=== PATIENT | male | born 1960 | race Caucasian/White ===

== ENCOUNTER 2017-04-13 10:48 | Emergency (ER) | payer OTHER ==
[~2017-04-13] VITALS: Ht 170.2 cm; Wt 86.0 kg
[~2017-04-13 10:48] MED LIST: OXYC5TAB PO
[2017-04-13 10:51] VITALS: TEMP 36.8; Ht 170.2 cm; Wt 86.0 kg
[2017-04-13] MEDS ORDERED: GI COCKTAIL PO STA (11:09)
[2017-04-13] MEDS ORDERED: ONDANSETRON INJ 2 MG/ML 2 ML VIAL IV STA (11:09)
[2017-04-13] MEDS ORDERED: FAMOTIDINE 20MG/5ML IV PUSH IV STA (11:09)
[2017-04-13] MEDS ORDERED: SODIUM CHLORIDE 0.9% 1000ML 1,000 ML IV STA (11:16)
--- NOTE | 2017-04-13 11:21 | EMERGENCY ROOM VISIT NOTE ---
History Report prepared by Allison: Dawn Yeager Under the Supervision of: Dr. Tushar Estes M.D. First contact with patient: 11:00 Chief Complaint: CHEST PAIN Stated Complaint: CHEST PAIN/TIGHTNESS, HIGH BP, TROUBLE SWALLOWING History of Present Illness The patient is a 56 year old male who presents to the Emergency Room with complaints of worsening chest pain that began over 2 weeks ago. He describes his discomfort as a sharp and burning chest pain that radiates downward. The patient states that he saw his PCP today, who recommended he come to the Emergency Department for further evaluation of his chest pain and hypertension. He notes that he has been having trouble swallowing, noting it feels like it gets stuck in the back of his throat. The patient states he has been experiencing back pain for one week, a cough for the past 2 weeks, feet numbness for several months, vomiting, head aches, and loss of appetite. The patient denies any diarrhea. The patient notes that he took Mucinex around 0600. He denies a history of blood clots, acid reflux, or smoking. Source of History: patient Onset: 2 weeks ago Position: chest Quality: other (chest pain) Timing: worsening Associated Symptoms: + headache, + cough, + vomiting, + back pain Review of Systems See HPI for pertinent positives and negatives. A total of ten systems were reviewed and were otherwise negative. Past Medical & Surgical Medical Problems: (1) Left leg injury Family History FH: HTN (hypertension) FH: cancer FH: diabetes mellitus FH: heart disease Social History Smoking Status: Never Smoker Alcohol Use: none Drug Use: none Marital Status: Housing Status: lives with family Occupation Status: employed Current/Historical Medications Scheduled Famotidine (Pepcid), 20 MG PO BID Prednisone Tab (Prednisone), 10 MG PO DIRECTED Allergies Coded Allergies: No Known Allergies (Unverified , 01/13/16) Physical Exam Vital Signs Date Time Temp Pulse Resp B/P (MAP) Pulse Ox O2 Delivery O2 Flow Rate FiO2 04/13/17 13:54 80 18 120/81 98 Room Air 04/13/17 13:21 86 04/13/17 11:43 94 Room Air 04/13/17 11:36 85 20 140/94 97 Room Air 04/13/17 11:11 90 04/13/17 10:51 36.8 93 20 151/98 96 Room Air Physical Exam GENERAL: Awake, alert, uncomfortable appearing, in no distress HENT: Dry mucous membranes. Normocephalic, atraumatic. Oropharynx unremarkable. EYES: Normal conjunctiva. Sclera non-icteric. NECK: Supple. No nuchal rigidity. FROM. No JVD. RESPIRATORY: Clear to auscultation. CARDIAC: Regular rate, normal rhythm. Extremities warm and well perfused. Pulses equal. ABDOMEN: Mild epigastric tenderness, no peritoneal signs such as distention, rebound, or guarding. No masses. RECTAL: Deferred. MUSCULOSKELETAL: Chest examination reveals no tenderness. The back is symmetrical on inspection without obvious abnormality. There is no CVA tenderness to palpation. No joint edema. LOWER EXTREMITIES: Calves are equal size bilaterally and non-tender. No edema. No discoloration. NEURO: Normal sensorium. No sensory or motor deficits noted. SKIN: No rash or jaundice noted. Medical Decision & Procedures ER Provider Diagnostic Interpretation: Radiology results as stated below per my review and radiologist interpretation: CHEST ONE VIEW PORTABLE HISTORY: 56 years-old Male CHEST PAIN acute atypical chest pain and chest tightness. Elevated blood pressure COMPARISON: Chest radiograph 04/15/2014 TECHNIQUE: Portable AP view of the chest FINDINGS: Cardiac silhouette is again mildly enlarged. No pneumothorax, pleural effusion, focal airspace consolidation or overt pulmonary edema. Bones of the chest appear grossly intact. IMPRESSION: Mild cardiomegaly without acute process. The above report was generated using voice recognition software. It may contain grammatical, syntax or spelling errors. Electronically signed by: Saul Thorne M.D. 04/13/2017 11:35 AM Dictated Date/Time: 04/13/2017 11:34 AM Laboratory Results 04/13/17 11:10 Red Blood Count 5.32, Mean Corpuscular Volume 89.7, Mean Corpuscular Hemoglobin 31.6, Mean Corpuscular Hemoglobin Concent 35.2, Mean Platelet Volume 9.3, Neutrophils (%) (Auto) 90.2, Lymphocytes (%) (Auto) 5.0, Monocytes (%) (Auto) 4.5, Eosinophils (%) (Auto) 0.0, Basophils (%) (Auto) 0.1, Neutrophils # (Auto) 17.51, Lymphocytes # (Auto) 0.98, Monocytes # (Auto) 0.87, Eosinophils # (Auto) 0.00, Basophils # (Auto) 0.01 04/13/17 11:10 Test 04/13/17 11:10 White Blood Count 19.41 K/uL (4.8-10.8) Red Blood Count 5.32 M/uL (4.7-6.1) Hemoglobin 16.8 g/dL (14.0-18.0) Hematocrit 47.7 % (42-52) Mean Corpuscular Volume 89.7 fL (80-100) Mean Corpuscular Hemoglobin 31.6 pg (25-34) Mean Corpuscular Hemoglobin Concent 35.2 g/dl (32-36) Platelet Count 241 K/uL (130-400) Mean Platelet Volume 9.3 fL (7.4-10.4) Neutrophils (%) (Auto) 90.2 % Lymphocytes (%) (Auto) 5.0 % Monocytes (%) (Auto) 4.5 % Eosinophils (%) (Auto) 0.0 % Basophils (%) (Auto) 0.1 % Neutrophils # (Auto) 17.51 K/uL (1.4-6.5) Lymphocytes # (Auto) 0.98 K/uL (1.2-3.4) Monocytes # (Auto) 0.87 K/uL (0.11-0.59) Eosinophils # (Auto) 0.00 K/uL (0-0.5) Basophils # (Auto) 0.01 K/uL (0-0.2) RDW Standard Deviation 41.2 fL (36.4-46.3) RDW Coefficient of Variation 12.7 % (11.5-14.5) Immature Granulocyte % (Auto) 0.2 % Immature Granulocyte # (Auto) 0.04 K/uL (0.00-0.02) Anion Gap 6.0 mmol/L (3-11) Est Creatinine Clear Calc Drug Dose 97.2 ml/min Estimated GFR () 110.3 Estimated GFR (Non- 95.2 BUN/Creatinine Ratio 12.5 (10-20) Calcium Level 8.6 mg/dl (8.5-10.1) Total Bilirubin 0.3 mg/dl (0.2-1) Direct Bilirubin < 0.1 mg/dl (0-0.2) Aspartate Amino Transf (AST/SGOT) 16 U/L (15-37) Alanine Aminotransferase (ALT/SGPT) 44 U/L (12-78) Alkaline Phosphatase 76 U/L (45-117) Troponin I < 0.015 ng/ml (0-0.045) Total Protein 7.9 gm/dl (6.4-8.2) Albumin 3.8 gm/dl (3.4-5.0) Lipase 129 U/L (73-393) Laboratory results reviewed by me Medications Administered Medications (Trade) Dose Ordered Sig/Johnathan Route Start Time Stop Time Status Last Admin Dose Admin Ondansetron HCl (Zofran Inj) 4 mg NOW STAT IV 04/13/17 11:09 04/13/17 11:17 DC 04/13/17 11:29 4 MG Famotidine (Pepcid 20mg Iv Push) 20 mg NOW STAT IV 04/13/17 11:09 04/13/17 11:17 DC 04/13/17 11:30 20 MG Sodium Chloride 1,000 ml @ 999 mls/hr Q1H1M STAT IV 04/13/17 11:16 04/13/17 12:16 DC 04/13/17 11:30 999 MLS/HR Al Hydroxide/Mg Hydroxide (Maalox Susp) 30 ml STK-MED ONCE .ROUTE 04/13/17 11:26 04/13/17 11:27 DC 04/13/17 11:30 30 ML Lidocaine HCl (Viscous Lidocaine 2% Soln) 20 ml STK-MED ONCE .ROUTE 04/13/17 11:27 04/13/17 11:28 DC 04/13/17 11:30 20 ML Albuterol (Ventolin Hfa Inhaler) 2 puffs NOW STAT INH 04/13/17 14:25 04/13/17 14:28 DC 04/13/17 14:34 2 PUFFS ECG Indication: chest pain Rate (beats per minute): 81 Rhythm: normal sinus Findings: no acute ischemic change, other (normal axis) ED Course 1107: The patient was evaluated in room B2. A complete history and physical exam was performed. 1341: I reevaluated the patient, who was resting comfortably. I discussed the test findings with him, letting him know that all his test results came back negative. We discussed the treatment plan and he verbalized complete understanding and agreement. The patient will follow up with GI. He was discharged home. Medical Decision I reviewed the patient's past medical history, medications, and the nursing notes as described above. The patient's presentation and history were concerning for gastritis, peptic ulcer, esophagitis, duodenitis, malignancy, ACS, dissection, aneurysm, pneumonia , bronchitis. Patient is a 56-year-old gentleman presents emergency department with numerous complaints including chest pain upper abdominal pain, difficulty swallowing and burning in his chest when he eats, feeling that food gets stuck when he eats, and bilateral lower extremity tingling for the past several months per history of present illness. While the patient is in no acute distress, afebrile stable vital signs. On exam he has mild tenderness in the epigastrium no peritoneal signs. EKG unremarkable. Labs notable for a leukocytosis to 19. CXR unremarkable. Given the patient's significant discomfort in the setting of long -standing history of chewing tobacco CTA was performed, and was negative for dissection, pneumonia, or acute abnormalities otherwise. However, it was noted that he has a sliding hiatal hernia which would likely predispose the patient to significant reflux and subsequent esophagitis. He did feel improved after IV Pepcid and GI cocktail. Otherwise a barium swallow study was performed and showed no impairment in the passage of the barium tablet. Given the patient is otherwise well-appearing at this time with no evidence of infection on this extensive workup while the patient follow-up with his primary care doctor to repeat his CBC. Additionally will provide GI referral for likely endoscopy given the patient's significant symptoms. We'll also give patient MDI for his persistent cough. No significant wheezing therefore no indication for steroids at this time. Additionally will begin Pepcid twice a day. Findings and plan for follow-up reviewed with patient. Patient agreeable and d/c'd per discharge instructions. Medication Reconcilliation Current Medication List: was personally reviewed by me Impression Primary Impression: Esophagitis Additional Impressions: Gastritis Sliding hiatal hernia Cough in adult Leukocytosis Scribe Attestation The scribe's documentation has been prepared under my direction and personally reviewed by me in its entirety. I confirm that the note above accurately reflects all work, treatment, procedures, and medical decision making performed by me. Departure Information Dispostion Home / Self-Care Prescriptions Famotidine (PEPCID) 20 Mg Tab 20 MG PO BID for 14 Days, #28 TAB Prov: Tushar Estes M.D. 04/13/17 Referrals Gagandeep Cast D.O. (PCP) Gagandeep Bradley MD Forms Call Back Authorization, HOME CARE DOCUMENTATION FORM, IMPORTANT VISIT INFORMATION Patient Instructions ED Gastritis, Esophagitis, My [facility] Additional Instructions Please follow up with your primary care physician in the next 1-3 days as well as with gastroenterology within a week for re-evaluation and to repeat your blood test, which today had an elevated white blood cell count, which was 19.4. You likely have esophagitis/gastritis in the setting of a sliding hiatal hernia. Otherwise, your exam, EKG, chest xray, barium swallow study, CTA of chest and abdomen, and lab results did not show signs of an emergent condition at this time. Pepcid as directed for acid reduction. Albuterol inhaler 2 puffs every 4 hours as needed for cough. Ensure hydration. Return to the emergency department for worsening symptoms as described in the accompanying instructions. Problem Qualifiers
[2017-04-13 11:25] LABS: BASO % 0.1 %; BASO ABS # 0.01 K/uL (0-0.2); HEMATOCRIT 47.7 % (42-52); HEMOGLOBIN 16.8 g/dL (14.0-18.0); IG# 0.04 K/uL (0.00-0.02); LYMPH ABS # 0.98 K/uL (1.2-3.4); MEAN CELL VOLUME 89.7 fL (80-100); MEAN CORPUSCULAR HEMOGLOBIN 31.6 pg (25-34); MEAN CORPUSCULAR HGB CONC 35.2 g/dl (32-36); MEAN PLATELET VOLUME 9.3 fL (7.4-10.4); MONO % 4.5 %; MONO ABS # 0.87 K/uL (0.11-0.59); NEUT % 90.2 %; NEUT ABS # 17.51 K/uL (1.4-6.5); PLATELET COUNT 241 K/uL (130-400); RED CELL DISTRIBUTION WIDTH CV 12.7 % (11.5-14.5); RED CELL DISTRIBUTION WIDTH SD 41.2 fL (36.4-46.3); WHITE BLOOD COUNT 19.41 K/uL (4.8-10.8)
[2017-04-13] MEDS ORDERED: ALUMINUM/MAGNESIUM SUSP 30 ML UDC ONE (11:26)
[2017-04-13] MEDS ORDERED: LIDOCAINE HCL 2% VISC SOLN 20 ML UDC ONE (11:27)
[2017-04-13] MEDS ORDERED: PRED10TA PO (11:27)
--- NOTE | 2017-04-13 11:36 | DIAGNOSTIC IMAGING REPORT ---
CHEST ONE VIEW PORTABLE HISTORY: 56 years-old Male CHEST PAIN acute atypical chest pain and chest tightness. Elevated blood pressure COMPARISON: Chest radiograph 04/15/2014 TECHNIQUE: Portable AP view of the chest FINDINGS: Cardiac silhouette is again mildly enlarged. No pneumothorax, pleural effusion, focal airspace consolidation or overt pulmonary edema. Bones of the chest appear grossly intact. IMPRESSION: Mild cardiomegaly without acute process. The above report was generated using voice recognition software. It may contain grammatical, syntax or spelling errors. Electronically signed by: Saul Thorne M.D. 04/13/2017 11:35 AM Dictated Date/Time: 04/13/2017 11:34 AM
[2017-04-13 11:43] VITALS: O2SAT 94
[2017-04-13 11:43] LABS: ALBUMIN 3.8 gm/dl (3.4-5.0); BLOOD UREA NITROGEN 11 mg/dl (7-18); CALCIUM 8.6 mg/dl (8.5-10.1); CARBON DIOXIDE 25 mmol/L (21-32); CREATININE 0.91 mg/dl (0.60-1.40); GLUCOSE 115 mg/dl (70-99); LIPASE 129 U/L (73-393); POTASSIUM 4.2 mmol/L (3.5-5.1); SODIUM 136 mmol/L (136-145)
[2017-04-13 11:49] LABS: ALKALINE PHOSPHATASE 76 U/L (45-117); ALT/SGPT 44 U/L (12-78); AST/SGOT 16 U/L (15-37); TOTAL PROTEIN 7.9 gm/dl (6.4-8.2)
[2017-04-13] MEDS ORDERED: OPTIRAY 320 IV PRN (12:30)
--- NOTE | 2017-04-13 13:14 | DIAGNOSTIC IMAGING REPORT ---
(BARIUM SWALLOW) ESOPHAGUS CLINICAL HISTORY: Dysphasia. Chest pain. COMPARISON STUDY: None FLUOROSCOPY TIME: 1.4 minutes. NUMBER OF FLUOROSCOPIC IMAGES: 24 FINDINGS: The patient swallowed effervescent granules and barium without difficulty. Rapid sequence swallows in the AP and lateral projections reveal no evidence of aspiration. No esophageal masses or ulcerations are visualized. There is a small sliding hiatal hernia with distal esophageal ring. This did not impede the passage of one half inch barium tablet. Note is made of reflux. IMPRESSION: 1. Small sliding hiatal hernia with a distal esophageal ring 2. A 1/2 inch barium tablet freely passed into the stomach 3. Reflux 4. No esophageal masses or strictures identified Electronically signed by: Gianfranco Loera M.D. 04/13/2017 1:13 PM Dictated Date/Time: 04/13/2017 1:11 PM
--- NOTE | 2017-04-13 13:18 | DIAGNOSTIC IMAGING REPORT ---
CHEST COMBO ANGIO DISSECTION, ANGIO ABD/PELVIS WITH CONTRAST CT DOSE: 1537.91 mGy.cm HISTORY: 56 years-old Male presents with acute chest and back pain with high blood pressure. Concern for possible dissection. TECHNIQUE: Multiple CTA images of the chest, abdomen and pelvis were obtained after the intravenous administration of 119 ml Optiray 320. Precontrast images were also obtained. Coronal and sagittal MIPS were obtained from the axial data set and were submitted for review. A dose lowering technique was utilized adhering to the principles of ALARA. All measurements were obtained according to NASCET criteria. COMPARISON: Chest radiograph 04/13/2017, CT abdomen and pelvis 01/13/2016. FINDINGS: CTA: The noncontrast scan demonstrates no intramural hematoma of the aorta. Heart is mildly enlarged without pericardial effusion. Thoracic aorta is normal in both course and caliber without aneurysm or dissection. Imaged proximal great vessels are patent. The opacified pulmonary arterial tree is unremarkable. No evidence of pulmonary emboli. The abdominal aorta is also normal in both course and caliber without aneurysm or dissection. The common iliac, external iliac, common femoral and imaged superficial femoral arteries are patent and within normal limits. No significant atherosclerotic vascular disease. The celiac trunk, superior and inferior mesenteric arteries are patent and within normal limits. The bilateral renal arteries are widely patent. No aneurysm, high-grade stenosis, proximal branch occlusion or dissection. CT CHEST: Thyroid is homogeneous. No pathologic-appearing adenopathy of the chest. Mild dependent subsegmental bibasilar atelectasis. No pneumothorax, pleural effusion, focal airspace consolidation or overt pulmonary edema. The bones of the chest appear grossly intact. Tissues are unremarkable. CT ABDOMEN/PELVIS: Prior cholecystectomy. Calcification of the lateral right hepatic lobe is noted. No intrahepatic biliary ductal dilation identified. The spleen, pancreas and adrenal glands are within normal limits. No nephrolithiasis or ureteral calculi identified. No hydronephrosis. 7 mm low attenuating lesion of the inferior pole left kidney suggests renal cyst. Mild wall thickening of the urinary bladder, likely secondary to partial distention. No bulky adenopathy identified. Small sliding-type hiatal hernia. No bowel obstruction or focal bowel wall thickening. The large bowel is within normal limits. Appendix appears normal. Soft tissues are within normal limits. The bones appear intact. 8 mm sclerotic focus of the right iliac bone suggests bone island. Mild multilevel facet arthrosis of the lumbar spine. IMPRESSION: 1. No acute intrathoracic, intra-abdominal or intrapelvic abnormality identified. 2. Unremarkable CTA without evidence of aneurysm, high-grade stenosis, proximal branch occlusion or dissection. No significant atherosclerotic vascular disease. 3. Small sliding-type hiatal hernia. 4. Normal appendix. The above report was generated using voice recognition software. It may contain grammatical, syntax or spelling errors. Electronically signed by: Saul Thorne M.D. 04/13/2017 1:16 PM Dictated Date/Time: 04/13/2017 1:03 PM
[2017-04-13 13:54] VITALS: BP 120/81; PULSE 80; O2SAT 98
[2017-04-13] MEDS ORDERED: FAMO20TA9 PO (14:21)
[2017-04-13] MEDS ORDERED: ALBUTEROL HFA 8 GM INHALER INH STA (14:25)
== END 2017-04-13 14:40 | disposition home or self-care (01) ==
LOC: C.EDB 10:49
DX: K20.9 Esophagitis, unspecified (principal); K29.70 Gastritis, unspecified, without bleeding; K44.9 Diaphragmatic hernia without obstruction or gangrene; R05 Cough; D72.829 Elevated white blood cell count, unspecified; I10 Essential (primary) hypertension; F17.220 Nicotine dependence, chewing tobacco, uncomplicated; Z82.49 Family history of ischemic heart disease and other diseases of the circulatory system; Z83.3 Family history of diabetes mellitus

== ENCOUNTER 2019-08-14 14:28 | Observation (INO) ==
--- OUTSIDE RECORDS SUMMARY | 2019-08-14 14:30 | External Medical Summary | Continuity of Care Document ---
:1960 Author Name Cookie Saenz Address Unavailable Unavailable , Care Team Providers Name Role Phone Ashley Saenz Unavailable [email or web address] PCP, NO Unavailable Unavailable Unavailable Unavailable Unavailable Problems Acute cholecystitis (575.0) (K81.0) Allergies and Adverse Reactions No Known Drug Allergies (Allergy) Medications No Reported Medications Refills: 0 Procedures History of Laparoscopic Cholecystectomy With Status: Completed 14-Jan-2016 0:00 Cholangiography History of Leg Repair Status: Completed Immunizations Immunizations not documented Social History - Smoking Status Never smoked tobacco Plan of Treatment Planned Observations Planned Goals not documented Results No Known Results Results not documented
--- OUTSIDE RECORDS SUMMARY | 2019-08-14 14:31 | External Medical Summary | Continuity of Care Document ---
:1960 Author Name Cookie Saenz Address Unavailable Unavailable , Care Team Providers Name Role Phone Ahsley Saenz Unavailable [email or web address] PCP, NO Unavailable Unavailable Unavailable Unavailable Unavailable [...]
--- NOTE | 2019-08-14 15:09 | Emergency Department Note ---
Impression & Plan Weakness of right side of body, Paresthesias, Hypophosphatemia, Headache ED Provider Note NAME: FRANCIS FOX AGE: 59 SEX: M : 1960 ARRIVES VIA: Walk-In INFORMANT: Patient, ED PROVIDER(S): Asael Olivo MD Chief Complaint: Headache, weakness and tingling HPI: States he does present with the above symptoms x3 days. They have been fairly constant. Patient states he describes the numbness as a tingling pi [id number]. The headache is right-sided behind his eye. Patient describes it as throbbing. Patient has tried taking Tylenol without relief. Not much in terms of exacerbating or alleviating symptoms. Patient does have a history of hypertension and hiatal hernia. 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 Otherwise, the patient does not present with co ugh, fevers, chills, coronavirus contacts, coronavirus testing. Patient has had occasional shortness of breath but it is not currently active. No chest pain. Patient does complain of some midline low back pain. Nonradiating. Patient denies any tick bites or being on the mac[place]. No history of Lyme's disease. Patient denies any history of migraines. Non-smoker. ROS: See HPI for pertinent positives and negatives. A total of 10 systems were reviewed and otherwise negative. Past medical history: See below Surgical history: See below Social history: See below Physical Exam: GENERAL: Well appearing, well nourished, NAD, non-toxic. Wearing glasses and mask. EYE EXAM: Normal conjunctiva. PERRL, no anisocoria and EOM's grossly intact w/o pain. NECK: Supple, no nuchal rigidity, no adenopathy, non-tender. No signs of meningismus. LUNGS: Clear to auscultation. Normal chest wall mechanics. HEART: NSR, no MRG. ABDOMEN: Abdomen soft, non-tender, normo-active bowel sounds, no masses, no r ebound or guarding. BACK: No CVA TTP. Mild lower lumbar discomfort. SKIN: No rashes and no bruising. UPPER EXTREMITIES: Upper extremities are grossly normal. LOWER EXTREMITIES: Grossly normal, no edema. NEURO EXAM: A&O x3, cranial nerves II-XII grossly intact, normal speech, moves all 4 extremities on command but with 4 out of 5 strength in the right upper and right lower extremity compared to 5 out of 5 in the left upper left lower extremity. Good finger to nose, no drift, no sensory deficits but paresthesias on the right side. Differential diagnoses: Infection, dehydration, metabolic abnormality, hypo/hyperglycemia, electrolyte disturbance, anemia, hypoxia, cardiac sources, intracerebral event, toxicologic, neurologic, as well as other pathologies. Course: Patient was seen and evaluated the bedside. A full history physical exam was performed. EKG: Indication: Weakness Sinus bradycardia, rate of 58, normal intervals, normal axis, T wave version in lead III but no overt ST changes. Imaging Studies: Radiology results as stated below per my review in the radiologist's interpr etation: HEAD & NECK CTA HISTORY: R sided weakness TECHNIQUE: Multiaxial CT images of the head were performed following the intravenous administration of contrast to evaluate the major cerebral vessels. Multiaxial CT images of the neck were also performed following the intravenous administration of contrast to evaluate the major cervical vessels. Maximum intensity projection images were also obtained. A dose lowering technique was utilized adhering to the principles of ALARA. COMPARISON: None. FINDINGS: There is no mass, hematoma, midline shift, or acute infarct. Visualized intracranial internal carotid arteries, distal vertebral arteries, and basilar artery are widely patent. There is no significant stenosis, occlusion, or aneurysm seen within the bilateral ACAs, MCAs, or director of application development. The aortic arch and proximal great vessels are widely patent. There is no significant stenosis, occlusion, or dissection identified within the bilateral common carotid, internal carotid, or vertebral arteries. IMPRESSION: 1. No significant stenosis, occlusion, or aneurysm within the [place]. 2. No significant stenosis, occlusion, or dissection identified within the carotid or vertebral arteries. ACT 112: Negative or not required by law. Electronically signed by: Gerardo Osullivan M.D. 08/14/2019 6:59 PM Dictated: 08/14/191849 Transcribed: 08/14/191849 HEAD CT NONCONTRAST CT DOSE: 638.56 mGycm HISTORY: Headache, R sided weakness/tingling TECHNIQUE: Multiaxial CT images of the head were performed without the use of intravenous contrast. Automated exposure control was utilized for this study. A dose lowering technique was utilized adhering to the principles of ALARA. Comparison: None. Findings: The paranasal sinuses and mastoid air cells are clear. The calvarium and skull base are intact. The ventricles and sulci are within normal limits. There is no mass, hematoma, midline shift, or acute infarct. Impression: No acute intracranial abnormality. ACT 112: Negative or not required by law. Electronically signed by: Gerardo Osullivan M.D. 08/14/2019 6:43 PM Dictated: 08/14/191836 Transcribed: 08/14/191836 Cardiac monitoring: An order was placed for continuous cardiac monitoring. The monitor shows a rate of 71 with sinus rhythm. MDM: Patient does present with concern primarily for headache weakness and tingling. The patient does have some right-sided objective weakness on exam. Patient is outside of the window for any TPA or code stroke at this time. Has had 3 days of symptoms. Patient did a blood work completed along with an EKG, troponin, chest x-ray and CT of the head. Patient also did have a [id number] BMP and CT angios of the head and neck ordered. Patient does have very mild leukopenia but cell counts otherwise do not show any change in her percentage of number. The patient has normal coagulation studies. Kidney function unremarkable with normal LFTs. Phosphorus was a touch low 2. Patient's troponin is nondetectable EKG is unremarkable. Lyme's is negative. CT of the head and CT Sharron of the head neck are normal. I did reassess the patient after his initial medications prior to scans. He was still complaining of headache. Additional medications were ordered. After he did return from scan he did have improvement in his headache. He stood still did feel that he had weakness in his right side. Given this concern with his risk factors I was concerned for the possibility of stroke and I believe the patient would benefit from further observation treatment and additional testing. Patient is agreeable to this. I did speak the on-call hospitalist Dr. Radha Mir not any physician hospitalist group who agreed to further evaluate treat the patient. Patient was admitted to the medicine service. Past Med/Surg History Medical History (Updated 08/14/19 @ 21:03 by Asael Olivo MD) GERD (gastroesophageal reflux disease) (Inactive) Hypertension Social History Preferred Language: Croatian Feels Safe at Home: Yes Smoking Status: Former smoker Allergies Allergies Allergy/AdvReac Type Severity Reaction Status Date / Time No Known Allergies Allergy Unverified 08/14/19 15:30 Home Meds Home Medications Medication Instructions Recorded Confirmed famotidine [Pepcid] 20 mg PO BID 08/14/19 08/14/19 losartan [Cozaar] 50 mg PO DAILY 08/14/19 08/14/19 melatonin 3 mg PO HS 08/14/19 08/14/19 pantoprazole [Protonix] 40 mg PO BID 08/14/19 08/14/19 Results & Data (ED) Vital Signs Vital Signs - 24 hr 08/14/19 14:37 08/14/19 14:55 08/14/19 15:47 Temperature 36.6 C Temperature Source Oral Pulse Rate 71 71 Pulse Rate from SpO2 Sensor Respiratory Rate 20 16 Respiratory Effort / Characteristics Non-Labored Spontaneous Respiratory Depth Normal Respiratory Pattern Regular Blood Pressure 153/104 H Blood Pressure Mean 120 Pulse Oximetry 97 97 Oxygen Delivery Method Room Air Room Air Sepsis Recent Fever Within 48 Hours No Sepsis New/Unexplained Change in Mental Status No Sepsis Action Taken by Nursing No Action Required 08/14/19 15:50 08/14/19 16:00 08/14/19 16:06 Temperature Temperature Source Pulse Rate 70 60 64 Pulse Rate from SpO2 Sensor 63 Respiratory Rate 14 19 23 Respiratory Effort / Characteristics Respiratory Depth Respiratory Pattern Blood Pressure 148/100 H Blood Pressure Mean 109 Pulse Oximetry 99 Oxygen Delivery Method Sepsis Recent Fever Within 48 Hours Sepsis New/Unexplained Change in Mental Status Sepsis Action Taken by Nursing 08/14/19 16:10 08/14/19 16:20 08/14/19 16:30 Temperature Temperature Source Pulse Rate 76 87 67 Pulse Rate from SpO2 Sensor 80 86 69 Respiratory Rate 19 20 16 Respiratory Effort / Characteristics Respiratory Depth Respiratory Pattern Blood Pressure 134/90 Blood Pressure Mean 100 Pulse Oximetry 100 97 98 Oxygen Delivery Method Sepsis Recent Fever Within 48 Hours Sepsis New/Unexplained Change in Mental Status Sepsis Action Taken by Nursing 08/14/19 16:31 08/14/19 16:40 08/14/19 16:50 Temperature Temperature Source Pulse Rate 65 77 84 Pulse Rate from SpO2 Sensor 65 77 87 Respiratory Rate 19 12 17 Respiratory Effort / Characteristics Respiratory Depth Respiratory Pattern Blood Pressure Blood Pressure Mean Pulse Oximetry 98 98 97 Oxygen Delivery Method Sepsis Recent Fever Within 48 Hours Sepsis New/Unexplained Change in Mental Status Sepsis Action Taken by Nursing 08/14/19 17:00 08/14/19 17:01 08/14/19 17:10 Temperature Temperature Source Pulse Rate 69 73 81 Pulse Rate from SpO2 Sensor 70 72 82 Respiratory Rate 19 14 18 Respiratory Effort / Characteristics Respiratory Depth Respiratory Pattern Blood Pressure 139/94 Blood Pressure Mean 103 Pulse Oximetry 98 98 100 Oxygen Delivery Method Sepsis Recent Fever Within 48 Hours Sepsis New/Unexplained Change in Mental Status Sepsis Action Taken by Nursing 08/14/19 17:20 08/14/19 17:30 08/14/19 17:31 Temperature Temperature Source Pulse Rate 69 87 86 Pulse Rate from SpO2 Sensor 68 84 86 Respiratory Rate 18 24 27 H Respiratory Effort / Characteristics Respiratory Depth Respiratory Pattern Blood Pressure 153/116 H Blood Pressure Mean 125 Pulse Oximetry 98 98 96 Oxygen Delivery Method Sepsis Recent Fever Within 48 Hours Sepsis New/Unexplained Change in Mental Status Sepsis Action Taken by Nursing 08/14/19 17:40 08/14/19 17:50 08/14/19 18:00 Temperature Temperature Source Pulse Rate 75 71 71 Pulse Rate from SpO2 Sensor 75 69 73 Respiratory Rate 19 14 23 Respiratory Effort / Characteristics Respiratory Depth Respiratory Pattern Blood Pressure 133/88 Blood Pressure Mean 92 Pulse Oximetry 100 99 98 Oxygen Delivery Method Sepsis Recent Fever Within 48 Hours Sepsis New/Unexplained Change in Mental Status Sepsis Action Taken by Nursing 08/14/19 18:01 08/14/19 18:21 08/14/19 19:00 Temperature Temperature Source Pulse Rate 69 86 69 Pulse Rate from SpO2 Sensor 70 84 Respiratory Rate 21 21 20 Respiratory Effort / Characteristics Respiratory Depth Respiratory Pattern Blood Pressure Blood Pressure Mean Pulse Oximetry 99 96 96 Oxygen Delivery Method Sepsis Recent Fever Within 48 Hours Sepsis New/Unexplained Change in Mental Status Sepsis Action Taken by Nursing 08/14/19 20:00 Temperature Temperature Source Pulse Rate 71 Pulse Rate from SpO2 Sensor Respiratory Rate 18 Respiratory Effort / Characteristics Respiratory Depth Respiratory Pattern Blood Pressure Blood Pressure Mean Pulse Oximetry 96 Oxygen Delivery Method Sepsis Recent Fever Within 48 Hours Sepsis New/Unexplained Change in Mental Status Sepsis Action Taken by Assisted Medications Current Medication List: was personally reviewed by me Laboratory Data Attestation: I reviewed the patient's lab results. Result diagrams: 08/14/19 15:49 08/14/19 15:49 Lab Results 08/14/19 08/14/19 08/14/19 Range/Units 15:49 15:49 15:49 WBC 4.37 L (4.8-10.8) K/uL RBC 5.18 (4.7-6.1) M/uL Hgb 16.1 (14.0-18.0) g/dL POC Hgb (14.0-18.0) g/dl Hct 47.3 (42-52) % POC Hct (42-52) % MCV 91.3 (80-100) fL MCH 31.1 (25-34) pg MCHC 34.0 (32-36) g/dL RDW Std Deviation 42.3 (36.4-46.3) fL RDW Coeff of [place] 12.6 (11.5-14.5) % Plt Count 225 (130-400) K/uL MPV 9.6 (7.4-10.4) fL Immature Gran % (Auto) 0.0 % Neut % (Auto) 48.3 % Lymph % (Auto) 38.2 % [place] % (Auto) 8.9 % Eos % (Auto) 3.7 % Baso % (Auto) 0.9 % Immature Gran # (Auto) 0.00 (0.00-0.02) K/uL Neut # (Auto) 2.11 (1.4-6.5) K/uL Lymph # (Auto) 1.67 (1.2-3.4) K/uL [place] # (Auto) 0.39 (0.11-0.59) K/uL Eos # (Auto) 0.16 (0-0.5) K/uL Baso # (Auto) 0.04 (0-0.2) K/uL PT 10.7 (9.0-12.0) Seconds INR 1.0 (0.9-1.1) APTT 25.7 (21.0-31.0) Seconds PTT Ratio 0.9 POC Sodium (135-144) mmol/L Sodium 140 (136-145) mmol/L POC Potassium (3.3-5.0) mmol/L Potassium 4.2 (3.5-5.1) mmol/L POC Chloride (101-112) mmol/L Chloride 110 H (98-107) mmol/L Carbon Dioxide 28 (21-32) mmol/L POC Total CO2 (24-31) mEq/l Anion Gap 2.0 L (3-11) POC Anion Gap (16-25) mmol/L POC BUN (7-18) mg/dl BUN 6 L (7-18) mg/dl Creatinine 1.08 (0.6-1.4) mg/dl POC Creatinine (0.6-1.3) mg/dl Est Cr Clr Drug Dosing 80.5 ml/min Est GFR ( Amer) 87.8 Est GFR (Non-Af Amer) 75.8 BUN/Creatinine Ratio 5.7 L (10-20) Glucose 95 (70-99) mg/dl POC Glucose (other) (70-99) mg/dl Calcium 8.4 L (8.5-10.1) mg/dl POC Ioniz Calcium Aries (1.12-1.32) mmol/l Phosphorus 2.0 L (2.5-4.9) mg/dl Magnesium 2.3 (1.8-2.4) mg/dl Total Bilirubin 0.3 (0.2-1) mg/dl AST 17 (15-37) U/L ALT 41 (12-78) U/L Alkaline Phosphatase 78 (45-117) U/L Troponin I < 0.015 (0-0.045) ng/ml Total Protein 7.4 (6.4-8.2) gm/dl Albumin 3.5 (3.4-5.0) gm/dl Globulin 3.9 (2.5-4.0) gm/dl Albumin/Globulin Ratio 0.9 (0.9-2) Lyme Disease IgG Ab (Negative) Lyme Disease IgM Ab (Negative) 08/14/19 08/14/19 Range/Units 15:49 16:03 WBC (4.8-10.8) K/uL RBC (4.7-6.1) M/uL Hgb (14.0-18.0) g/dL POC Hgb 16.3 (14.0-18.0) g/dl Hct (42-52) % POC Hct 48 (42-52) % MCV (80-100) fL MCH (25-34) pg MCHC (32-36) g/dL RDW Std Deviation (36.4-46.3) fL RDW Coeff of [place] (11.5-14.5) % Plt Count (130-400) K/uL MPV (7.4-10.4) fL Immature Gran % (Auto) % Neut % (Auto) % Lymph % (Auto) % [place] % (Auto) % Eos % (Auto) % Baso % (Auto) % Immature Gran # (Auto) (0.00-0.02) K/uL Neut # (Auto) (1.4-6.5) K/uL Lymph # (Auto) (1.2-3.4) K/uL [place] # (Auto) (0.11-0.59) K/uL Eos # (Auto) (0-0.5) K/uL Baso # (Auto) (0-0.2) K/uL PT (9.0-12.0) Seconds INR (0.9-1.1) APTT (21.0-31.0) Seconds PTT Ratio POC Sodium 141 (135-144) mmol/L Sodium (136-145) mmol/L POC Potassium 4.1 (3.3-5.0) mmol/L Potassium (3.5-5.1) mmol/L POC Chloride 104 (101-112) mmol/L Chloride (98-107) mmol/L Carbon Dioxide (21-32) mmol/L POC Total CO2 27 (24-31) mEq/l Anion Gap (3-11) POC Anion Gap 15.0 L (16-25) mmol/L POC BUN 7 (7-18) mg/dl BUN (7-18) mg/dl Creatinine (0.6-1.4) mg/dl POC Creatinine 1.0 (0.6-1.3) mg/dl Est Cr Clr Drug Dosing ml/min Est GFR ( Amer) Est GFR (Non-Af Amer) BUN/Creatinine Ratio (10-20) Glucose (70-99) mg/dl POC Glucose (other) 93 (70-99) mg/dl Calcium (8.5-10.1) mg/dl POC Ioniz Calcium Aries 1.18 (1.12-1.32) mmol/l Phosphorus (2.5-4.9) mg/dl Magnesium (1.8-2.4) mg/dl Total Bilirubin (0.2-1) mg/dl AST (15-37) U/L ALT (12-78) U/L Alkaline Phosphatase (45-117) U/L Troponin I (0-0.045) ng/ml Total Protein (6.4-8.2) gm/dl Albumin (3.4-5.0) gm/dl Globulin (2.5-4.0) gm/dl Albumin/Globulin Ratio (0.9-2) Lyme Disease IgG Ab Negative (Negative) Lyme Disease IgM Ab Negative (Negative) Administered Medications Ioversol (Optiray 320 125ml) 118 ml IV ONCE PRN PRN Reason: Interaction Checking Stop: 08/18/19 17:36 Last Admin: 08/14/19 17:37 Dose: 1 ml Documented by: [id number] Discontinued Medications Acetaminophen (Tylenol) 1,000 mg PO NOW STA Stop: 08/14/19 16:53 Last Admin: 08/14/19 17:52 Dose: 1,000 mg Documented by: [id number] Dexamethasone Sodium Phosphate (Decadron Pf) 10 mg IV NOW ONE Stop: 08/14/19 16:53 Last Admin: 08/14/19 17:52 Dose: 10 mg Documented by: [id number] Diphenhydramine HCl (Benadryl) 25 mg IV NOW STA Stop: 08/14/19 15:23 Last Admin: 08/14/19 15:56 Dose: 25 mg Documented by: [id number] Sodium Chloride (Nss 1000ml) 1,000 mls @ 999 mls/hr IV .Q1H1M PATTIE Stop: 08/14/19 16:30 Last Infusion: 08/14/19 17:00 Dose: 0 mls/hr Documented by: [id number] Admin: 08/14/19 15:56 Dose: 999 mls/hr Documented by: [id number] Sodium Chloride (Nss 1000ml) 1,000 mls @ 999 mls/hr IV .Q1H1M PATTIE Stop: 08/14/19 16:30 Last Infusion: 08/14/19 17:00 Dose: 0 mls/hr Documented by: [id number] Admin: 08/14/19 15:56 Dose: 999 mls/hr Documented by: [id number] Magnesium Sulfate/Dextrose (Magnesium Sulfate / D5w) 1 gm in 100 mls @ 100 mls/hr IV ONE ONE Stop: 08/14/19 16:21 Last Infusion: 08/14/19 17:00 Dose: 0 mls/hr Documented by: [id number] Admin: 08/14/19 15:56 Dose: 100 mls/hr Documented by: [id number] Metoclopramide HCl (Reglan) 10 mg IV NOW STA Stop: 08/14/19 15:23 Last Admin: 08/14/19 15:57 Dose: 10 mg Documented by: [id number] Prochlorperazine (Compazine) 10 mg IV NOW STA Stop: 08/14/19 16:53 Last Admin: 08/14/19 17:52 Dose: 10 mg Documented by: [id number] Blood Pressure Blood Pressure Findings: Elevated blood pressure Discharge Plan Visit Data Chief Complaint: Shortness of Breath/Dyspnea Stated Complaint: SOB, TRAVEL ED Provider: Asael Olivo Discharge Problem: Weakness of right side of body, Paresthesias, Hypophosphatemia, Headache Forms Stand Alone Forms: [facility] [employer] Prescriptions Prescriptions: No Action losartan [Cozaar] 50 mg tablet 50 mg PO DAILY RF: 0 melatonin 3 mg tablet 3 mg PO HS RF: 0 famotidine [Pepcid] 20 mg tablet 20 mg PO BID RF: 0 pantoprazole [Protonix] 40 mg tablet,delayed release (DR/EC) 40 mg PO BID RF: 0 Discharge Problem: Headache Qualifiers: Headache type: unspecified Headache chronicity pattern: acute headache Intractability: not intractable Qualified Code(s): R51 - Headache
[2019-08-14] MEDS ORDERED: METOCLOPRAMIDE HCL INJ 5 MG/ML 2 ML VIAL IV STA (15:22)
[2019-08-14] MEDS ORDERED: DiphenhydrAMINE HCL 50 MG/ML VIAL IV STA (15:22)
[2019-08-14] MEDS ORDERED: MAGNESIUM SULFATE / D5W 1 GM/100 ML BAG IV ONE (15:22)
[2019-08-14] MEDS ORDERED: SODIUM CHLORIDE 0.9% 1000ML 1,000 ML IV SCH ×2 (15:30)
[2019-08-14 16:03] LABS: Basophils # (auto) 0.04 K/uL (0-0.2); Basophils % (auto) 0.9 %; Eosinophils # (auto) 0.16 K/uL (0-0.5); Eosinophils % (auto) 3.7 %; Hematocrit (blood only) 47.3 % (42-52); Hemoglobin 16.1 g/dL (14.0-18.0); Lymphocytes # (auto) 1.67 K/uL (1.2-3.4); Lymphocytes % (auto) 38.2 %; Mean Corpuscular Hemoglobin 31.1 pg (25-34); Mean Corpuscular Volume 91.3 fL (80-100); Mean Platelet Volume 9.6 fL (7.4-10.4); Monocytes # (auto) 0.39 K/uL (0.11-0.59); Monocytes % (auto) 8.9 %; Neutrophils # (auto) 2.11 K/uL (1.4-6.5); Neutrophils % (auto) 48.3 %; Platelet Count 225 K/uL (130-400); RDW Coefficient of Variation 12.6 % (11.5-14.5); RDW Standard Deviation 42.3 fL (36.4-46.3); Red Blood Count 5.18 M/uL (4.7-6.1); White Blood Count 4.37 K/uL (4.8-10.8)
[2019-08-14 16:16] LABS: iSTAT Hemoglobin 16.3 g/dl (14.0-18.0); iSTAT Ionized Calcium 1.18 mmol/l (1.12-1.32); iSTAT Potassium 4.1 mmol/L (3.3-5.0)
[2019-08-14 16:17] LABS: Partial Thromboplastin Ratio 0.9; Partial Thromboplastin Time 25.7 Seconds (21.0-31.0); Prothrombin Time 10.7 Seconds (9.0-12.0)
[2019-08-14 16:20] LABS: Alanine Aminotransferase 41 U/L (12-78); Albumin Level 3.5 gm/dl (3.4-5.0); Aspartate Aminotransferase 17 U/L (15-37); BUN Creatinine Ratio 5.7 (10-20); Blood Urea Nitrogen 6 mg/dl (7-18); Calcium 8.4 mg/dl (8.5-10.1); Carbon Dioxide 28 mmol/L (21-32); Chloride 110 mmol/L (98-107); Creatinine Clr Calc Pharmacy 80.5 ml/min; Est GFR (African American) 87.8; Est GFR (Non-African American) 75.8; Glucose 95 mg/dl (70-99); Magnesium 2.3 mg/dl (1.8-2.4); Potassium 4.2 mmol/L (3.5-5.1); Sodium 140 mmol/L (136-145)
[2019-08-14 16:25] LABS: Albumin Globulin Ratio 0.9 (0.9-2); Alkaline Phosphatase 78 U/L (45-117); Bilirubin,Total 0.3 mg/dl (0.2-1); Globulin 3.9 gm/dl (2.5-4.0); Total Protein 7.4 gm/dl (6.4-8.2); Troponin I < 0.015 ng/ml (0-0.045)
--- NOTE | 2019-08-14 16:48 | XRay Report ---
XR chest 1V portable HISTORY: Dyspnea COMPARISON: Chest 04/13/2017. FINDINGS: No pneumothorax. No pleural effusions. The heart remains mildly enlarged. There are low jeremie g volumes. The lungs are clear. Prior cholecystectomy. IMPRESSION: Stable mild cardiomegaly. ACT 112: Negative or not required by law. Electronically signed by: Gerardo Osullivan M.D. 08/14/2019 4:47 PM
[2019-08-14 16:51] LABS: Lyme Ab IgG w/WB Rflx Negative (Negative); Lyme Ab IgM w/WB Rflx Negative (Negative)
[2019-08-14] MEDS ORDERED: DEXAMETHASONE **PF** INJ 10 MG/ML VIAL IV ONE (16:52)
[2019-08-14] MEDS ORDERED: ACETAMINOPHEN 500 MG TAB PO STA (16:52)
[2019-08-14] MEDS ORDERED: PROCHLORPERAZINE 5 MG/ML 2 ML VIAL IV STA (16:52)
[2019-08-14] MEDS ORDERED: OPTIRAY 320 125ml IV PRN (17:37)
--- NOTE | 2019-08-14 18:44 | CT Scan Report ---
HEAD CT NONCONTRAST CT DOSE: 638.56 mGycm HISTORY: Headache, R sided weakness/tingling TECHNIQUE: Multiaxial CT images of the head were performed without the use of intravenous contrast. A utomated exposure control was utilized for this study. A dose lowering technique was utilized adheri ng to the principles of ALARA. Comparison: None. Findings: The paranasal sinuses and mastoid air cells are clear. The calvarium and skull base are int act. The ventricles and sulci are within normal limits. There is no mass, hematoma, midline shift, or acute infarct. Impression: No acute intracranial abnormality. ACT 112: Negative or not required by law. Electronically signed by: Gerardo Osullivan M.D. 08/14/2019 6:43 PM
--- NOTE | 2019-08-14 19:01 | CT Scan Report ---
HEAD & NECK CTA HISTORY: R sided weakness TECHNIQUE: Multiaxial CT images of the head were performed following the intravenous administration o f contrast to evaluate the major cerebral vessels. Multiaxial CT images of the neck were also perform ed following the intravenous administration of contrast to evaluate the major cervical vessels. Maxim um intensity projection images were also obtained. A dose lowering technique was utilized adhering to the principles of ALARA. COMPARISON: None. FINDINGS: There is no mass, hematoma, midline shift, or acute infarct. Visualized intracranial internal carotid arteries, distal vertebral arteries, and basilar artery are widely patent. There is no significant s tenosis, occlusion, or aneurysm seen within the bilateral ACAs, MCAs, or wrong address clerk. The aortic arch and proximal great vessels are widely patent. There is no significant stenosis, occ lusion, or dissection identified within the bilateral common carotid, internal carotid, or vertebral arteries. IMPRESSION: 1. No significant stenosis, occlusion, or aneurysm within the [place]. 2. No significant stenosis, occlusion, or dissection identified within the carotid or vertebral arter ies. ACT 112: Negative or not required by law. Electronically signed by: Gerardo Osullivan M.D. 08/14/2019 6:59 PM
--- NOTE | 2019-08-14 19:01 | CT Scan Report ---
HEAD & NECK CTA HISTORY: R sided weakness TECHNIQUE: Multiaxial CT images of the head were performed following the intravenous administration o f contrast to evaluate the major cerebral vessels. Multiaxial CT images of the neck were also perform ed following the intravenous administration of contrast to evaluate the major cervical vessels. Maxim um intensity projection images were also obtained. A dose lowering technique was utilized adhering to the principles of ALARA. COMPARISON: None. FINDINGS: There is no mass, hematoma, midline shift, or acute infarct. Visualized intracranial internal carotid arteries, distal vertebral arteries, and basilar artery are widely patent. There is no significant s tenosis, occlusion, or aneurysm seen within the bilateral ACAs, MCAs, or eye dropper assembler. The aortic arch and proximal great vessels are widely patent. There is no significant stenosis, occ lusion, or dissection identified within the bilateral common carotid, internal carotid, or vertebral arteries. IMPRESSION: 1. No significant stenosis, occlusion, or aneurysm within the [place]. 2. No significant stenosis, occlusion, or dissection identified within the carotid or vertebral arter ies. ACT 112: Negative or not required by law. Electronically signed by: Gerardo Osullivan M.D. 08/14/2019 6:59 PM
[2019-08-14] MEDS ORDERED: ONDANSETRON INJ 2 MG/ML 2 ML VIAL IV PRN (22:15)
[2019-08-14] MEDS ORDERED: CYCLOBENZAPRINE HCL 10 MG TAB PO PRN (22:15)
[2019-08-14] MEDS ORDERED: MELATONIN 3 MG TAB PO SCH (22:15)
[2019-08-14] MEDS ORDERED: ACETAMINOPHEN 325 MG TAB PO PRN (22:15)
[2019-08-15] MEDS ORDERED: GADOBUTROL 65ML VIAL IV PRN
--- NOTE | 2019-08-15 00:02 | History & Physical Report ---
Date of Service August 14, 2019 Assessment & Plan (1) Paresthesias: Patient with numbness/tingling/subjective weakness/clumsiness of RUE/RLE and right face. ?CVA/TIA vs complex migraine vs cervical myelopathy. CT Head and CTA within normal limits -Check MRI brain -Check lipid panel and A1C for risk stratification -Neuro checks -Neurology consultation -PT/OT evaluation Present on Admission?: Yes (2) Esophagitis: Chronic. -Continue Pepcid BID -Continue Protonix 40mg po BID Present on Admission?: Yes (3) Hypertension: Blood pressure mildly elevated -Hold Losartan for now to allow for permissive HTN Present on Admission?: Yes (4) Neck muscle spasm: Right sided neck spasm -Flexeril PRN -Heat -Tylenol PRN F/E/N - Heplock. Monitor electrolytes and replete as neede, Neutrophos QID for hypophosphaetemia, Heart healthy diet as tolerated Ppx - Low risk for DVT Code - Full Dispo - Observation with telemetry Present on Admission?: Yes Admission and Anticipated Discharge Date Admission Date: August 14, 2019 Anticipated date of discharge: 08/15/19 History of Present Illness Chief Complaint: numbness/tingling RUE and RLE Primary Care Provider: Conchis Ko is a pleasant 59yo C male with history of HTN presenting with 3 days of numbness/tingling/weakness and tingling of his RUE as well as some balance difficulty and heaviness of his RLE. He reports the symptoms have been persistent. He also has a dull throbbing headache behind his right eye. Today he began to feel some tingling in his right jaw and cheek which prompted him to come to the ER. He denies trauma, no falls, no history of migraine or frequent headache. No visual changes, no slurred speech or facial droop. Patient denies SOB/CP/cough/fever/chills. No alteration in taste or smell. No sick contacts or contact with Covid-19 positive individuals. 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 He states that he tries to socially distance and tries not to get out of his truck or use rest areas while traveling. ER Course: Tylenol, Dexamethasone, Benadryl, Reglan, Phenergan, NSS, Mg Allergies Allergy/AdvReac Type Severity Reaction Status Date / Time No Known Allergies Allergy Unverified 08/14/19 15:30 Home Medications Home Medications Medication Instructions Recorded Confirmed Type famotidine [Pepcid] 20 mg PO BID 08/14/19 08/14/19 History losartan [Cozaar] 50 mg PO DAILY 08/14/19 08/14/19 History melatonin 3 mg PO HS 08/14/19 08/14/19 History pantoprazole [Protonix] 40 mg PO BID 08/14/19 08/14/19 History Past Med/Surg History Medical History (Updated 08/15/19 @ 00:12 by Radha Mir DO) GERD (gastroesophageal reflux disease) (Inactive) Hypertension Family History (Updated 08/14/19 @ 23:54 by Radha Mir DO) Other No significant family history Social History Preferred Language: Macedonian Communication Ability: Effective 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 Beliefs That Will Affect Care: None Current Living Situation: Spouse and Family Other Information That Helps Us Care for You: No Feels Safe at Home: Yes Safety Concerns: Feels Safe At This Time Smoking Status: Never smoker Hx Alcohol Use: No Hx Substance Use: No Review of Systems Review of Systems: All systems reviewed & are unremarkable except as noted in HPI & below Physical Exam Physical Exam: General: patient resting comfortably, NAD, non-toxic in appearance, AA&O x 4, cloth face mask in place Skin: warm, dry, intact, no rashes or lesions HEENT: NC/AT, PERRL, EOMI, anicteric sclera, conjunctiva without injection, external ear normal to inspection and nontender, nares patent, moist mucus membranes, dentition intact, no oropharyngeal lesions, neck supple, trachea midline, no LAD, no thyromegaly, no JVD, acute tenderness of right cervical paraspinal musculature, area boggy and slightly warm to the touch on exam Heart: +S1/S2, regular, no m/r/g Lungs: equal air entry bilaterally, no rales/rhonchi/wheezes Abd: +BS, soft, NT/ND, no masses/organomegaly/ascites Ext: warm, 2+ pulses in UE/LE bilaterally, no clubbing/cyanosis or edema Neuro: AA&O x 4, speech intact, no facial droop, CN II - XII tested - patient with diminished sensation to light touch in V2 and V3 distribution on right, slightly diminished strength of CN XI on right, diminished sensation on RUE, strength preserved 5/5 throughout, sensation to light touch in LE intact, coordination intact Results & Data Results & Data ([facility]) Vital Signs (Past 12 Hours) Vital Signs Temp Pulse Pulse Resp BP BP Pulse Ox 08/14/19 22:41 36.4 C L 82 16 148/96 H 93 08/14/19 22:33 36.4 C L 82 16 148/96 H 93 08/14/19 22:10 79 21 141/100 H 99 08/14/19 20:18 80 20 133/87 98 08/14/19 20:00 71 18 96 08/14/19 19:00 69 20 96 08/14/19 18:21 86 21 96 08/14/19 18:01 69 21 99 08/14/19 18:00 71 23 133/88 98 08/14/19 17:50 71 14 99 08/14/19 17:40 75 19 100 08/14/19 17:31 86 27 H 96 08/14/19 17:30 87 24 153/116 H 98 08/14/19 17:20 69 18 98 08/14/19 17:10 81 18 100 08/14/19 17:01 73 14 98 08/14/19 17:00 69 19 139/94 98 08/14/19 16:50 84 17 97 08/14/19 16:40 77 12 98 08/14/19 16:31 65 19 98 08/14/19 16:30 67 16 134/90 98 08/14/19 16:20 87 20 97 08/14/19 16:10 76 19 100 08/14/19 16:06 64 23 148/100 H 99 08/14/19 16:00 60 19 08/14/19 15:50 70 14 08/14/19 15:47 71 16 08/14/19 14:55 97 08/14/19 14:37 36.6 C 71 20 153/104 H 97 Laboratory Results Lab Results 08/14/19 08/14/19 08/14/19 Range/Units 15:49 15:49 15:49 WBC 4.37 L (4.8-10.8) K/uL RBC 5.18 (4.7-6.1) M/uL Hgb 16.1 (14.0-18.0) g/dL POC Hgb (14.0-18.0) g/dl Hct 47.3 (42-52) % POC Hct (42-52) % MCV 91.3 (80-100) fL MCH 31.1 (25-34) pg MCHC 34.0 (32-36) g/dL RDW Std Deviation 42.3 (36.4-46.3) fL RDW Coeff of [place] 12.6 (11.5-14.5) % Plt Count 225 (130-400) K/uL MPV 9.6 (7.4-10.4) fL Immature Gran % (Auto) 0.0 % Neut % (Auto) 48.3 % Lymph % (Auto) 38.2 % [place] % (Auto) 8.9 % Eos % (Auto) 3.7 % Baso % (Auto) 0.9 % Immature Gran # (Auto) 0.00 (0.00-0.02) K/uL Neut # (Auto) 2.11 (1.4-6.5) K/uL Lymph # (Auto) 1.67 (1.2-3.4) K/uL Walton # (Auto) 0.39 (0.11-0.59) K/uL Eos # (Auto) 0.16 (0-0.5) K/uL Baso # (Auto) 0.04 (0-0.2) K/uL PT 10.7 (9.0-12.0) Seconds INR 1.0 (0.9-1.1) APTT 25.7 (21.0-31.0) Seconds PTT Ratio 0.9 POC Sodium (135-144) mmol/L Sodium 140 (136-145) mmol/L POC Potassium (3.3-5.0) mmol/L Potassium 4.2 (3.5-5.1) mmol/L POC Chloride (101-112) mmol/L Chloride 110 H (98-107) mmol/L Carbon Dioxide 28 (21-32) mmol/L POC Total CO2 (24-31) mEq/l Anion Gap 2.0 L (3-11) POC Anion Gap (16-25) mmol/L POC BUN (7-18) mg/dl BUN 6 L (7-18) mg/dl Creatinine 1.08 (0.6-1.4) mg/dl POC Creatinine (0.6-1.3) mg/dl Est Cr Clr Drug Dosing 80.5 ml/min Est GFR ( Amer) 87.8 Est GFR (Non-Af Amer) 75.8 BUN/Creatinine Ratio 5.7 L (10-20) Glucose 95 (70-99) mg/dl POC Glucose (other) (70-99) mg/dl Calcium 8.4 L (8.5-10.1) mg/dl POC Ioniz Calcium Aries (1.12-1.32) mmol/l Phosphorus 2.0 L (2.5-4.9) mg/dl Magnesium 2.3 (1.8-2.4) mg/dl Total Bilirubin 0.3 (0.2-1) mg/dl AST 17 (15-37) U/L ALT 41 (12-78) U/L Alkaline Phosphatase 78 (45-117) U/L Troponin I < 0.015 (0-0.045) ng/ml Total Protein 7.4 (6.4-8.2) gm/dl Albumin 3.5 (3.4-5.0) gm/dl Globulin 3.9 (2.5-4.0) gm/dl Albumin/Globulin Ratio 0.9 (0.9-2) Lyme Disease IgG Ab (Negative) Lyme Disease IgM Ab (Negative) 08/14/19 08/14/19 Range/Units 15:49 16:03 WBC (4.8-10.8) K/uL RBC (4.7-6.1) M/uL Hgb (14.0-18.0) g/dL POC Hgb 16.3 (14.0-18.0) g/dl Hct (42-52) % POC Hct 48 (42-52) % MCV (80-100) fL MCH (25-34) pg MCHC (32-36) g/dL RDW Std Deviation (36.4-46.3) fL RDW Coeff of [place] (11.5-14.5) % Plt Count (130-400) K/uL MPV (7.4-10.4) fL Immature Gran % (Auto) % Neut % (Auto) % Lymph % (Auto) % Walton % (Auto) % Eos % (Auto) % Baso % (Auto) % Immature Gran # (Auto) (0.00-0.02) K/uL Neut # (Auto) (1.4-6.5) K/uL Lymph # (Auto) (1.2-3.4) K/uL [place] # (Auto) (0.11-0.59) K/uL Eos # (Auto) (0-0.5) K/uL Baso # (Auto) (0-0.2) K/uL PT (9.0-12.0) Seconds INR (0.9-1.1) APTT (21.0-31.0) Seconds PTT Ratio POC Sodium 141 (135-144) mmol/L Sodium (136-145) mmol/L POC Potassium 4.1 (3.3-5.0) mmol/L Potassium (3.5-5.1) mmol/L POC Chloride 104 (101-112) mmol/L Chloride (98-107) mmol/L Carbon Dioxide (21-32) mmol/L POC Total CO2 27 (24-31) mEq/l Anion Gap (3-11) POC Anion Gap 15.0 L (16-25) mmol/L POC BUN 7 (7-18) mg/dl BUN (7-18) mg/dl Creatinine (0.6-1.4) mg/dl POC Creatinine 1.0 (0.6-1.3) mg/dl Est Cr Clr Drug Dosing ml/min Est GFR ( Amer) Est GFR (Non-Af Amer) BUN/Creatinine Ratio (10-20) Glucose (70-99) mg/dl POC Glucose (other) 93 (70-99) mg/dl Calcium (8.5-10.1) mg/dl POC Ioniz Calcium Aries 1.18 (1.12-1.32) mmol/l Phosphorus (2.5-4.9) mg/dl Magnesium (1.8-2.4) mg/dl Total Bilirubin (0.2-1) mg/dl AST (15-37) U/L ALT (12-78) U/L Alkaline Phosphatase (45-117) U/L Troponin I (0-0.045) ng/ml Total Protein (6.4-8.2) gm/dl Albumin (3.4-5.0) gm/dl Globulin (2.5-4.0) gm/dl Albumin/Globulin Ratio (0.9-2) Lyme Disease IgG Ab Negative (Negative) Lyme Disease IgM Ab Negative (Negative) Diagnostic Findings XR chest 1V portable HISTORY: Dyspnea COMPARISON: Chest 04/13/2017. FINDINGS: No pneumothorax. No pleural effusions. The heart remains mildly enlarged. There are low lung volumes. The lungs are clear. Prior cholecystectomy. IMPRESSION: Stable mild cardiomegaly. ACT 112: Negative or not required by law. Electronically signed by: Gerardo Osullivan M.D. 08/14/2019 4:47 PM -[address] DOSE: 638.56 mGycm HISTORY: Headache, R sided weakness/tingling TECHNIQUE: Multiaxial CT images of the head were performed without the use of intravenous contrast. Automated exposure control was utilized for this study. A dose lowering technique was utilized adhering to the principles of ALARA. Comparison: None. Findings: The paranasal sinuses and mastoid air cells are clear. The calvarium and skull base are intact. The ventricles and sulci are within normal limits. There is no mass, hematoma, midline shift, or acute infarct. Impression: No acute intracranial abnormality. ACT 112: Negative or not required by law. Electronically signed by: Gerardo Osullivan M.D. 08/14/2019 6:43 PM Dictated: 08/14/191836 Transcribed: 08/14/191836 HEAD & NECK CTA HISTORY: R sided weakness TECHNIQUE: Multiaxial CT images of the head were performed following the intravenous administration of contrast to evaluate the major cerebral vessels. Multiaxial CT images of the neck were also performed following the intravenous administration of contrast to evaluate the major cervical vessels. Maximum intensity projection images were also obtained. A dose lowering technique was utilized adhering to the principles of ALARA. COMPARISON: None. FINDINGS: There is no mass, hematoma, midline shift, or acute infarct. Visualized intracranial internal carotid arteries, distal vertebral arteries, and basilar artery are widely patent. There is no significant stenosis, occlusion, or aneurysm seen within the bilateral ACAs, MCAs, or hand stone polisher. The aortic arch and proximal great vessels are widely patent. There is no significant stenosis, occlusion, or dissection identified within the bilateral common carotid, internal carotid, or vertebral arteries. IMPRESSION: 1. No significant stenosis, occlusion, or aneurysm within the [place]. 2. No significant stenosis, occlusion, or dissection identified within the carotid or vertebral arteries. ACT 112: Negative or not required by law. MRI Brain performed - STAT-rad read pending - will follow ECG Additional Comments: The study shows SB at 58, normal axis and intervals, no acute ischemic changes Code Status & VTE Plan Code Status FUll VTE Prophylaxis Plan VTE Prophylaxis will be ordered: Yes PG Care Time/CCT Total # of Minutes Spent Total Time Spent with Patient: Total time spent is greater than 50% in coordination of care (as documented) at patient's floor/unit and/or counseling patient: Coding Level of Care Code 34766 OBS Care - Level 3 Diagnoses Paresthesias R20.2 Esophagitis K20.9 Hypertension I10 Hypertension type: essential hypertension Neck muscle spasm M62.838 (1) Hypertension Hypertension type: essential hypertension Qualified Code(s): I10 - Essential (primary) hypertension
[2019-08-15] MEDS: PANTOprazole 40 MG TAB PO SCH ×2 (00:07→10:19)
[2019-08-15] MEDS: FAMOTIDINE 20 MG TAB PO SCH ×2 (00:08→10:19)
[2019-08-15] MEDS ORDERED: KETOROLAC 30 MG/ML VIAL IV ONE (00:52)
[2019-08-15 00:56] LABS: Appearance Urine Clear (Clear); Bilirubin Urine Negative (Negative); Blood Urine Negative (Negative); Color Urine Yellow; Glucose Urine UA 2+ (Negative); Ketones Urine Trace (Negative); Leukocyte Esterase Urine Negative (Negative); Nitrite Urine Negative (Negative); Protein Urine Negative (Negative); Specific Gravity Urine 1.039 (1.000-1.030); Urobilinogen Urine Negative (Negative)
[2019-08-15 05:32] LABS: Hematocrit (blood only) 45.6 % (42-52); Hemoglobin 15.6 g/dL (14.0-18.0); Immature Granulocytes # (auto) 0.01 K/uL (0.00-0.02); Immature Granulocytes % (auto) 0.1 %; Lymphocytes % (auto) 6.5 %; Mean Corpuscular Hgb Conc 34.2 g/dL (32-36); Mean Corpuscular Volume 90.7 fL (80-100); Mean Platelet Volume 9.6 fL (7.4-10.4); Monocytes # (auto) 0.16 K/uL (0.11-0.59); Monocytes % (auto) 1.5 %; Neutrophils # (auto) 9.88 K/uL (1.4-6.5); Neutrophils % (auto) 91.9 %; Platelet Count 256 K/uL (130-400); RDW Coefficient of Variation 12.6 % (11.5-14.5); RDW Standard Deviation 41.5 fL (36.4-46.3); Red Blood Count 5.03 M/uL (4.7-6.1); White Blood Count 10.75 K/uL (4.8-10.8)
[2019-08-15 06:04] LABS: BUN Creatinine Ratio 8.7 (10-20); Calcium 8.4 mg/dl (8.5-10.1); Creatinine Clr Calc Pharmacy 92.5 ml/min; Est GFR (African American) 103.9; Est GFR (Non-African American) 89.6; Potassium 4.7 mmol/L (3.5-5.1)
[2019-08-15 06:06] LABS: Estimated Average Glucose 105 mg/dl; Hemoglobin A1C 5.3 % (4.5-5.6)
--- NOTE | 2019-08-15 07:26 | Magnetic Resonance Report ---
MR brain wo/w con CLINICAL HISTORY: 59 years-old Male presenting with ?CVA/TIA. TECHNIQUE: Multisequence, multiplanar MR imaging of the brain was performed before and after the admi nistration of intravenous contrast. IV contrast: 8.9 mL of Gadavist. COMPARISON: Noncontrast CT head performed earlier the same day. FINDINGS: Localizer images: Unremarkable. Bone marrow signal intensity within the calvarium within normal limits. Normal midline sagittal structures. Ventricles and sulci normal in size. No mass effect or midline sh ift. No restricted diffusion or hemorrhage. Brain parenchyma normal in appearance with preserved abll -white differentiation. No abnormal parenchymal enhancement. No extra-axial fluid collection. T2 skull base flow voids preserved. Diminutive left maxillary sinus with mucosal thickening, likely at maxillary sinus atelectasis. IMPRESSION: 1. No acute intracranial pathology. No abnormal enhancement. ACT 112: Negative or not required by law. Electronically signed by: Edwar Dubon M.D. 08/15/2019 7:25 AM
--- NOTE | 2019-08-15 08:29 | Electrocardiogram Report ---
Test Reason : Blood Pressure : / mmHG Vent. Rate : 058 BPM Atrial Rate : 058 BPM P-R Int : 170 ms QRS Dur : 076 ms QT Int : 410 ms P-R-T Axes : 044 035 019 degrees QTc Int : 402 ms Poor data quality, interpretation may be adversely affected Sinus bradycardia Otherwise normal ECG When compared with ECG of 13-APR-2017 11:02, No significant change was found Confirmed by Bennie Mackey ([id number]) on 08/15/2019 8:29:03 AM Referred By: Confirmed By:Bennie Mackey
[2019-08-15] MEDS ORDERED: ASPIRIN 81 MG ECTAB PO SCH (09:00)
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
[2019-08-15] MEDS: POT PHOSPHATE MONOBASIC W/ SOD TAB PO SCH ×2 (10:19→14:14)
--- NOTE | 2019-08-22 07:21 | Discharge Summary ---
Date of Service August 15, 2019 Admission HPI Per Admitting Provider Melvin Ko is a pleasant 59yo C male with history of HTN presenting with 3 days of numbness/tingling/weakness and tingling of his RUE as well as some balance difficulty and heaviness of his RLE. He reports the symptoms have been persistent. He also has a dull throbbing headache behind his right eye. Today he began to feel some tingling in his right jaw and cheek which prompted him to come to the ER. He denies trauma, no falls, no history of migraine or frequent headache. No visual changes, no slurred speech or facial droop. Patient denies SOB/CP/cough/fever/chills. No alteration in taste or smell. No sick contacts or contact with Covid-19 positive individuals. 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 He states that he tries to socially distance and tries not to get out of his truck or use rest areas while traveling. ER Course: Tylenol, Dexamethasone, Benadryl, Reglan, Phenergan, NSS, Mg Principal Diagnosis complex migraine Discharge Exam General: patient resting comfortably, NAD, non-toxic in appearance, AA&O x 4, cloth face mask in place Skin: warm, dry, intact, no rashes or lesions HEENT: NC/AT, PERRL, EOMI, anicteric sclera, conjunctiva without injection, external ear normal to inspection and nontender, nares patent, moist mucus membranes, dentition intact, no oropharyngeal lesions, neck supple, trachea midline, no LAD, no thyromegaly, no JVD, acute tenderness of right cervical paraspinal musculature, area boggy and slightly warm to the touch on exam Heart: +S1/S2, regular, no m/r/g Lungs: equal air entry bilaterally, no rales/rhonchi/wheezes Abd: +BS, soft, NT/ND, no masses/organomegaly/ascites Ext: warm, 2+ pulses in UE/LE bilaterally, no clubbing/cyanosis or edema Neuro: AA&O x 4, speech intact, no facial droop, CN II - XII tested - patient with diminished sensation to light touch in V2 and V3 distribution on right, slightly diminished strength of CN XI on right, diminished sensation on RUE, strength preserved 5/5 throughout, sensation to light touch in LE intact, coordination intact Discharge Data Allergies Allergy/AdvReac Type Severity Reaction Status Date / Time No Known Allergies Allergy Unverified 08/14/19 15:30 Consultations 08/14/19 20:01 ED Decision to Admit Stat 08/14/19 22:15 Consult Neurology Routine Ordered Studies 08/14/19 15:23 CT head/brain wo con Stat 08/14/19 15:46 CT angio head w con Stat CT angio neck with con Stat 08/14/19 22:15 MR brain wo/w con Routine Hospital Course (1) Paresthesias: Patient with numbness/tingling/subjective weakness/clumsiness of RUE/RLE and right face. ?CVA/TIA vs complex migraine vs cervical myelopathy. CT Patient has had the onset of a significant right confucianist headache, right upper extremity (mostly hand) numbness and tingling, weakness in the right hand, intermittent right foot numbness and tingling, and right face numbness since August 11. He has had considerable improvement in the symptoms since getting Decadron in the emergency room. Blood pressure was elevated in the emergency room and has been normalized today. Does have a history of hypertension. He has no other significant stroke risk factors including diabetes, dyslipidemia, or cigarette smoking (chews tobacco). Appears diagnosis is a complex migraine. Appreciate input from Neuro: Bold MRI showed no acute stroke but did show some very mild nonspecific old small vessel ischemic changes, likely secondary to his history of hypertension. Overall, the etiology of his symptoms is most consistent with vasospasm/complicated migraine. There is no evidence for stroke and he has no significant stenoses or vessel anomalies in the head or neck by CT angiography. Laboratory studies were unremarkable as well. Recommendations: 1. I agree with 81 milligram aspirin tablet daily for stroke prevention. 2. Control blood pressure as you are doing, aiming for a mean arterial pressure of 95-100 3. I see no need for statins in this case since his lipids are quite normal. 4. Typically these types of vasospasm/complicated migraines resolve on their own with symptoms lasting up to a week or 2 (although usually fade slowly over that time). 5. Verapamil would be my drug of choice for vasospasm/complicated migraine prevention and to control hypertension at the same time. I would start with 180 milligrams SR once daily and titrate from there. Otherwise, titrate losartan as needed. 6. Consider ESR and TSH. 7. I can follow up in the office in few weeks if necessary. Patient is clear for discharge. Due to controlled BP, decreased losartan to 25 mg daily from 50 mg daily. (2) Esophagitis: Chronic. -Continue Pepcid BID -Continue Protonix 40mg po BID (3) Hypertension: Blood pressure mildly elevated (4) Neck muscle spasm: Right sided neck spasm -Flexeril PRN -Heat -Tylenol PRN Total Time Total Time Spent Total Time Spent (In Minutes): 40 Total Time Includes: Examination of the Patient, Discharge Planning and Medication Reconciliation Discharge Plan Discharge Items Patient Disposition: Home - Self-Care Reason For Visit: RIGHT SIDED NUMBNESS Discharge Diagnosis: COMPLICATED MIGRAINE Activity: Resume your previous activity Non-emergency contact: Primary Care Provider Call non-emergency contact if: you have any medication questions Follow-up/Referrals: Conchis Mosqueda PA-C [Primary Care Provider] - (Please call your primary care provider to schedule a follow-up discharge appointment.) Diet: Regular Addtl Attending Provider Instructions: You have been hospitalized for an acute medical problem. During your stay at [facility], we have made an effort to correct the problem that brought you to the hospital while keeping you as comfortable as possible. Medications were used to bring your condition under control and your discharge instructions will include directions for any medications you should take after leaving the hospital. Please make sure you see your Primary Care Provider as part of your follow up plan. As we are adding verapamil, will recommend to cut back on your cozaar. Pending Studies at Discharge: No Stand-Alone Forms: My [facility], Work/School Release (Inpt), Smoking Cessation Medications and DC Order Prescriptions: New verapamil 120 mg capsule,ext rel. pellets 24 hr 120 mg PO DAILY Qty: 30 RF: 0 acetaminophen [Mapap (acetaminophen)] 325 mg Tablet 650 mg PO Q4H PRN (Reason: PAIN) Qty: 0 RF: 0 aspirin 81 mg Tablet,Delayed Release (Dr/Ec) 81 mg PO DAILY Qty: 0 RF: 0 Phospha 250 Neutral 250 mg Tablet 1 tab PO QID Qty: 12 RF: 0 Continued melatonin 3 mg tablet 3 mg PO HS RF: 0 famotidine [Pepcid] 20 mg tablet 20 mg PO BID RF: 0 pantoprazole [Protonix] 40 mg tablet,delayed release (DR/EC) 40 mg PO BID RF: 0 Changed losartan [Cozaar] 50 mg tablet 25 mg PO DAILY Qty: 0 RF: 0 Discharge Orders: Discharge Order (Routine); Ordered 08/15/19 Ordered By: Mando Bowers Admission Data Admit Date/Time: 08/14/19 21:06 Attending Provider: Mando Bowers Admit Provider: Radha Mir Primary Care Provider: Conchis Mosqueda Other Providers: Brayan Chapin Other Interventions: Discharge Summary Assessment (RN) Last Done: 08/15/19 14:50 DC Date/Time DO NOT enter until pt leaves facility: 08/15/19 16:08 Coding Level of Care Code 68353 OBS Care - Discharge Diagnoses Paresthesias R20.2 Esophagitis K20.9 Hypertension I10 Hypertension type: essential hypertension Neck muscle spasm M62.838
== END 2019-08-15 16:08 | disposition home or self-care (01) ==
LOC: ED 14:28 → 2N 14:28 → SUATTDRO 21:06 → 2N 22:10